=== PATIENT | male | born 1960 | race Caucasian/White ===

== ENCOUNTER 2017-06-10 07:58 | Emergency (ER) | payer BC ==
[2017-06-10] MEDS ORDERED: Sodium Chloride 0.9% 100 ML ONE (08:32)
[2017-06-10] MEDS ORDERED: Piperacillin/Tazobactam 3.375 GM VIAL ONE (08:32)
[2017-06-10 08:47] LABS: PTT 34.1 SEC (22.9-36.1); Prothrombin Time 13.5 SEC (12.0-14.7)
[2017-06-10 08:48] LABS: #Basophils 0.1 thou/uL (0.0-0.2); #Lymphocytes 0.8 thou/uL (1.20-3.40); #Monocytes 0.9 thou/uL (0.11-0.59); #Neutrophils 9.4 thou/uL (1.40-6.50); %Basophils 1.2 % (0.0-1.0); %Eosinophils 0.1 % (0.0-10.0); %Lymphocytes 7.2 % (21.0-51.0); %Monocytes 7.6 % (0.0-10.0); %Neutrophils 83.9 % (42.0-75.0); Mean Corpuscular Hemoglobin 30.3 pg (27.0-31.0); Mean Corpuscular Volume 91.8 fl (80.0-94.0); Mean Platelet Volume 9.4 fL (7.4-10.4); Platelet Count 154 thou/uL (130-400); RBC Distribution Width 12.3 % (11.5-14.5); White Blood Cell (WBC) Count 11.2 thou/uL (4.8-10.8)
[2017-06-10 08:49] LABS: Lactic Acid 1.3 mmol/L (0.5-2.2)
--- NOTE | 2017-06-10 08:49 | RAD ---
CHEST ONE VIEW: History: Dyspnea. FINDINGS: No comparison. Cardiac silhouette is magnified by projection. Pulmonary vasculature is unremarkable. Mediastinum is midline. No lobar consolidation or pneumothorax are apparent. IMPRESSION: No active cardiopulmonary abnormalities are demonstrated. POS: [facility]
[2017-06-10 08:56] LABS: ALT (SGPT) 25 U/L (8-55); AST (SGOT) 22 U/L (5-34); Albumin 4.5 g/dL (3.5-5.0); Alkaline Phosphatase 89 U/L (40-150); Anion Gap 17 mmol/L (10-20); BUN (Urea Nitrogen) 10 mg/dL (8.4-25.7); Bilirubin, Total 0.5 mg/dL (0.2-1.2); Calc. Creatinine Clearance 0 mL/min (70-130); Calcium 9.5 mg/dL (7.8-10.44); Carbon Dioxide 29 mmol/L (22-29); Chloride 98 mmol/L (98-107); Estimated GFR-MDRD 82; Globulin 3.8 g/dL (2.4-3.5); Glucose 130 mg/dL (70-105); Potassium 4.7 mmol/L (3.5-5.1); Protein, Total 8.3 g/dL (6.0-8.3); Sodium 139 mmol/L (136-145)
[2017-06-10] MEDS ORDERED: methylPREDNISolone Sod Succ/PF 125 MG/2 ML VIAL ONE (09:00)
[2017-06-10 09:04] LABS: pH (venous) 7.29 (7.35-7.45)
[2017-06-10 09:05] LABS: Base Excess 3.7 mEq/L (-2 - +2); Hemoglobin (Hb) 17.6 g/dL (13.1-17.2)
[2017-06-10 09:13] LABS: CKMB 1.8 ng/mL (0-6.6); D-Dimer Test 0.62 *mcg/mL (0.27-0.43); Troponin I Less than 0.010 ng/mL (< 0.028)
[2017-06-10] MEDS ORDERED: Ketorolac Tromethamine 30 MG/ML VIAL ONE (09:24)
== END 2017-06-10 10:18 | disposition short-term general hospital (02) ==
LOC: BURERS 07:58
DX: J44.1 Chronic obstructive pulmonary disease with (acute) exacerbation (principal); J96.00 Acute respiratory failure, unspecified whether with hypoxia or hypercapnia; J11.1 Influenza due to unidentified influenza virus with other respiratory manifestations; F17.210 Nicotine dependence, cigarettes, uncomplicated
CPT/HCPCS: 36415; 71010; 80053; 82553; 82805; 83605; 83880; 84484; 85025; 85379; 85610; 85730; 87040; 87804; 93005; 94660; 94760; 96361; 96365; 96375; J1885; J2543; J2930; J7050; J7620